=== PATIENT | female | born 1975 | race Caucasian/White ===

== ENCOUNTER → 2017-12-18 10:23 | Outpatient (CLI) | payer OTHER, SELFPAY | PROVIDERS: PCP Family Medicine; Visit Provider Physician Assistant | DX: N89.9 Noninflammatory disorder of vagina, unspecified (principal); N39.0 Urinary tract infection, site not specified | CPT/HCPCS: 87077; 87086; 87147; 87210 ==

== ENCOUNTER → 2018-01-06 10:54 | Outpatient (CLI) | payer OTHER, SELFPAY | PROVIDERS: PCP Family Medicine; Visit Provider Registered Nurse | DX: N76.0 Acute vaginitis (principal) | CPT/HCPCS: 87070; 87205 ==

== ENCOUNTER → 2018-01-13 10:03 | Outpatient (CLI) | payer OTHER, SELFPAY | PROVIDERS: PCP Family Medicine; Visit Provider Registered Nurse | DX: N76.0 Acute vaginitis (principal) ==

== ENCOUNTER → 2018-02-15 07:56 | Outpatient (CLI) | payer OTHER, SELFPAY ==
[2018-02-15 08:54] LABS: Add Manual Diff / Slide Review NO; Basophils Percent Auto 0.8 % (0-2); Hematocrit 41.8 % (36-46); Lymphocytes Percent Auto 31.6 % (25-40); Mean Corpuscular HGB Conc 33.5 % (30-36); Mean Corpuscular Hemoglobin 30.2 PG (26-34); Mean Corpuscular Volume 90.2 fL (80-100); Monocytes Percent Auto 6.6 % (3-14); Neutrophils Absolute Auto 3500 /uL (3000-5900); Platelet Count 270 X10^3/uL (150-400); Red Blood Cell Count 4.64 X10^6/uL (4.0-5.2); Red Cell Distribution Width 13.4 % (11.6-14.8); White Blood Cell Count 5.8 X10^3/uL (4.5-11.0)
[2018-02-15 09:15] LABS: Alanine Aminotransferase 17 IU/L (9-52); Albumin 4.2 g/dL (3.5-5.0); Albumin Globulin Ratio 1.4 (1.0-2.8); Alkaline Phosphatase 68 U/L (38-126); Aspartate Aminotransferase 19 IU/L (14-36); BUN Creatinine Ratio 12.5 (6-22); Bilirubin Total 0.3 mg/dL (0.2-1.3); Blood Urea Nitrogen 10 mg/dL (7-17); Calcium 8.7 mg/dL (8.4-10.2); Carbon Dioxide 25 mmol/L (22-32); Chloride 110 mmol/L (98-107); Cholesterol 181 mg/dL (140-199); Estimated Glomerular Filt Rate > 60.0 mL/min (>60); Globulin 2.9 g/dL (1.7-4.1); Glucose 91 mg/dL (70-100); HDL Cholesterol 44 mg/dL (40-60); HEMOLYSIS < 15 (0-50); LDL Cholesterol Calculated 116 mg/dL (<100); Potassium 4.4 mmol/L (3.4-5.1); Sodium 144 mmol/L (137-145); Total Protein 7.1 g/dL (6.3-8.2); Triglycerides 103 mg/dL (35-150)
[2018-02-15 09:47] LABS: TSH w/ Reflex to FT4 1.16 uIU/mL (0.47-4.68)
== END ==
PROVIDERS: PCP Family Medicine; Visit Provider Family Medicine
DX: Z00.00 Encounter for general adult medical examination without abnormal findings (principal)
CPT/HCPCS: 36415; 80053; 80061; 84443; 85025

== ENCOUNTER → 2018-03-01 09:55 | Outpatient (CLI) | payer OTHER, SELFPAY ==
[2018-03-01 10:44] LABS: Lithium 0.4 mmol/L (0.6-1.2)
== END ==
PROVIDERS: PCP Family Medicine; Visit Provider Nurse Practitioner Psychiatric/Mental Health
DX: F34.0 Cyclothymic disorder (principal)
CPT/HCPCS: 36415; 80178

== ENCOUNTER → 2018-04-07 12:27 | Outpatient (CLI) | payer OTHER, SELFPAY | PROVIDERS: PCP Family Medicine; Visit Provider Obstetrics & Gynecology | DX: R30.0 Dysuria (principal) | CPT/HCPCS: 87086 ==

== ENCOUNTER → 2018-04-30 13:56 | Outpatient (CLI) | payer OTHER, SELFPAY | PROVIDERS: PCP Family Medicine; Visit Provider Family Medicine | DX: B82.9 Intestinal parasitism, unspecified (principal) | CPT/HCPCS: 87169 ==

== ENCOUNTER → 2018-08-13 10:39 | Outpatient (CLI) | payer OTHER, SELFPAY ==
--- NOTE | 2018-08-13 10:40 | DI.MG.S_ITS ---
BILATERAL DIGITAL SCREENING MAMMOGRAM 3D/2D WITH CAD: 08/13/2018 CLINICAL: Routine screening. Family history of breast cancer. Comparison is made to exams dated: 05/28/2015 mammogram, 05/28/2015 mammogram, and 07/11/2014 mammogram - [facility]. The tissue of both breasts is heterogeneously dense. This may lower the sensitivity of mammography. Current study was also evaluated with a Computer Aided Detection (CAD) system. There is a linear scar marker overlying the right breast. No significant masses, calcifications, or other findings are seen in either breast. There has been no significant interval change. IMPRESSION: NEGATIVE There is no mammographic evidence of malignancy. A 1 year screening mammogram is recommended. This exam was interpreted at Station ID: [id number]. NOTE: For mammograms, a report in lay terms will be sent to the patient. Approximately 15% of breast malignancies will not be visualized mammographically. In the management of a palpable breast mass, a negative mammogram must not discourage biopsy of a clinically suspicious lesion. Electronically Signed By: Riki John M.D. ecl/:08/13/2018 11:59:42 letter sent: Normal Exam ACR BI-RADS Category 1: Negative 3341F
== END ==
PROVIDERS: PCP Family Medicine; Visit Provider Family Medicine
DX: Z12.31 Encounter for screening mammogram for malignant neoplasm of breast (principal); Z80.3 Family history of malignant neoplasm of breast
CPT/HCPCS: 77063; 77067

== ENCOUNTER → 2018-11-23 10:57 | Outpatient (CLI) | payer OTHER, SELFPAY ==
[2018-11-23 12:26] LABS: Free T4, Direct Thyroxine 0.94 ng/dL (0.78-2.19)
[2018-11-23 12:40] LABS: Thyroid Stimulating Hormone 1.85 uIU/mL (0.47-4.68)
== END ==
PROVIDERS: PCP Family Medicine; Visit Provider Nurse Practitioner Psychiatric/Mental Health
DX: L65.9 Nonscarring hair loss, unspecified (principal)
CPT/HCPCS: 36415; 84439; 84443

== ENCOUNTER → 2020-01-25 09:41 | Outpatient (CLI) | payer OTHER, SELFPAY ==
[2020-01-25 10:41] LABS: Add Manual Diff / Slide Review NO; Basophils Absolute Auto 100 /uL (0-100); Basophils Percent Auto 0.9 % (0-2); Eosinophils Absolute Auto 200 /uL (0-450); Eosinophils Percent Auto 2.6 % (2-4); Hematocrit 41.4 % (36-46); Hemoglobin 13.9 g/dL (12.0-16.0); Lymphocytes Absolute Auto 1700 /uL (1100-4500); Lymphocytes Percent Auto 29.8 % (25-40); Mean Corpuscular HGB Conc 33.5 % (30-36); Mean Corpuscular Hemoglobin 30.7 PG (26-34); Mean Corpuscular Volume 91.7 fL (80-100); Monocytes Absolute Auto 400 /uL (0-900); Monocytes Percent Auto 6.1 % (3-14); Neutrophils Absolute Auto 3600 /uL (1500-7000); Neutrophils Percent Auto 60.6 % (50-75); Platelet Count 279 X10^3/uL (150-400); Red Blood Cell Count 4.52 X10^6/uL (4.0-5.2); Red Cell Distribution Width 13.1 % (11.6-14.8); White Blood Cell Count 5.9 X10^3/uL (4.5-11.0)
[2020-01-25 10:50] LABS: Hemoglobin A1C% w Est Avg Glu 5.2 % (4.0-6.0)
[2020-01-25 10:59] LABS: Lithium 0.3 mmol/L (0.6-1.2)
[2020-01-25 11:13] LABS: Alanine Aminotransferase 11 IU/L (<35); Albumin 4.2 g/dL (3.5-5.0); Albumin Globulin Ratio 1.5 (1.0-2.8); Alkaline Phosphatase 85 U/L (38-126); Aspartate Aminotransferase 19 IU/L (14-36); BUN Creatinine Ratio 15.8 (6-22); Bilirubin Total 0.3 mg/dL (0.2-1.3); Blood Urea Nitrogen 12 mg/dL (7-17); Calcium 8.9 mg/dL (8.4-10.2); Carbon Dioxide 27 mmol/L (22-32); Chloride 108 mmol/L (98-107); Estimated Glomerular Filt Rate > 60.0 mL/min (>60); Globulin 2.8 g/dL (1.7-4.1); Glucose 93 mg/dL (70-100); HEMOLYSIS < 15 (0-50); Potassium 4.5 mmol/L (3.4-5.1); Sodium 140 mmol/L (137-145)
[2020-01-25 11:17] LABS: Vitamin D 25 Hydroxy (D3) 22.2 ng/mL (30.0-100.0)
[2020-01-25 11:19] LABS: Free T4, Direct Thyroxine 1.01 ng/dL (0.78-2.19)
[2020-01-25 12:25] LABS: Cholesterol 189 mg/dL (140-199); HDL Cholesterol 61 mg/dL (40-60); LDL Cholesterol Calculated 115 mg/dL (<100); Triglycerides 65 mg/dL (35-150)
== END ==
PROVIDERS: PCP Family Medicine; Referring Provider Nurse Practitioner Psychiatric/Mental Health; Visit Provider Nurse Practitioner Psychiatric/Mental Health
DX: Z51.81 Encounter for therapeutic drug level monitoring (principal); E66.9 Obesity, unspecified
CPT/HCPCS: 36415; 80053; 80061; 80178; 82306; 83036; 84439; 84443; 85025

== ENCOUNTER → 2020-03-28 11:01 | Outpatient (CLI) | payer OTHER, SELFPAY ==
--- NOTE | 2020-03-28 11:01 | DI.MG.S_ITS ---
BILATERAL DIGITAL SCREENING MAMMOGRAM 3D/2D WITH CAD: 03/28/2020 CLINICAL: Routine screening. Family history of breast cancer. Comparison is made to exams dated: 08/13/2018 mammogram, 05/28/2015 mammogram, 05/28/2015 mammogram, and 07/11/2014 mammogram - [facility]. There are scattered fibroglandular elements in both breasts. Current study was also evaluated with a Computer Aided Detection (CAD) system. There is a developing 1.1 cm oval asymmetry in the left breast middle depth lateral region seen on the craniocaudal view only. No other significant masses, calcifications, or other findings are seen in either breast. IMPRESSION: INCOMPLETE: NEEDS ADDITIONAL IMAGING EVALUATION The developing 1.1 cm oval asymmetry in the left breast is indeterminate. Additional views with possible ultrasound are recommended. This exam was interpreted at Station ID: [id number]. NOTE: For mammograms, a report in lay terms will be sent to the patient. Approximately 15% of breast malignancies will not be visualized mammographically. In the management of a palpable breast mass, a negative mammogram must not discourage biopsy of a clinically suspicious lesion. Electronically Signed By: Catherine boucher/ruben:03/28/2020 13:00:26 letter sent: Additional Imaging Needed ACR BI-RADS Category 0: Incomplete 3340F
== END ==
PROVIDERS: PCP Family Medicine; Referring Provider Family Medicine; Visit Provider Family Medicine
DX: Z12.31 Encounter for screening mammogram for malignant neoplasm of breast (principal); Z80.3 Family history of malignant neoplasm of breast
CPT/HCPCS: 77063; 77067

== ENCOUNTER → 2020-04-26 14:05 | Outpatient (CLI) | payer OTHER, SELFPAY ==
--- NOTE | 2020-04-26 | DI.MG.S_ITS ---
UNILATERAL LEFT DIGITAL DIAGNOSTIC MAMMOGRAM 3D/2D WITH ADDITIONAL VIEWS: 04/26/2020 CLINICAL: Additional evaluation requested from prior study. Comparison is made to exams dated: 03/28/2020 mammogram, 08/13/2018 mammogram, 05/28/2015 mammogram, and 07/11/2014 mammogram - [facility]. There are scattered fibroglandular elements in left breast. The oval asymmetry with indistinct marginf in the left breast middle depth lateral region seen on the craniocaudal view onlyis not discretely seen on additional views. This region appears unchanged compared to prior studies with additional compression. No other significant masses or calcifications are seen in the breast. IMPRESSION: BENIGN There is no mammographic evidence of malignancy. A 1 year screening mammogram is recommended. This exam was interpreted at Station ID: [id number]. NOTE: For mammograms, a report in lay terms will be sent to the patient. Approximately 15% of breast malignancies will not be visualized mammographically. In the management of a palpable breast mass, a negative mammogram must not discourage biopsy of a clinically suspicious lesion. Electronically Signed By: Hieu reese/:04/26/2020 14:32:43 letter sent: Normal Exam ACR BI-RADS Category 2: Benign Finding(s) 3342F
== END ==
PROVIDERS: PCP Family Medicine; Referring Provider Family Medicine; Visit Provider Family Medicine
DX: R92.8 Other abnormal and inconclusive findings on diagnostic imaging of breast (principal)
CPT/HCPCS: 77065; G0279

== ENCOUNTER → 2020-05-16 09:17 | Outpatient (CLI) | payer OTHER, SELFPAY ==
--- NOTE | 2020-05-16 09:18 | DI.RAD.S_ITS ---
PROCEDURE: XR ANKLE LT MIN 3V INDICATIONS: sprain, tenderness over lateral malleolus TECHNIQUE: 3 views of the ankle were acquired. COMPARISON: None. FINDINGS: Bones: There is an ill-defined nondisplaced lucency within the distal fibula, not well seen on all views. Ankle mortise is normally aligned. No suspicious bony lesions. Soft tissues: Lateral malleolar soft tissue edema. Achilles tendon appears normal. IMPRESSION: Lateral malleolar soft tissue edema of. Ill-defined distal fibular lucency, not well seen on all views. While this could be artifact, fracture cannot be definitively excluded. Recommend follow-up imaging in 7-10 days for further evaluation. Dictated by: Mirela Randolph M.D. on 05/16/2020 at 9:31 Approved by: Mirela Randolph M.D. on 05/16/2020 at 9:32
== END ==
PROVIDERS: PCP Family Medicine; Referring Provider Family Medicine; Visit Provider Family Medicine
DX: S93.402A Sprain of unspecified ligament of left ankle, initial encounter (principal); M79.89 Other specified soft tissue disorders; X50.0XXA Overexertion from strenuous movement or load, initial encounter
CPT/HCPCS: 73610

== ENCOUNTER → 2021-06-03 12:16 | Outpatient (CLI) | payer OTHER, SELFPAY ==
[2021-06-03 13:04] LABS: Add Manual Diff / Slide Review NO; Basophils Absolute Auto 100 /uL (0-100); Basophils Percent Auto 1.1 % (0-2); Eosinophils Absolute Auto 0 /uL (0-450); Eosinophils Percent Auto 0.1 % (2-4); Hematocrit 40.8 % (36-46); Hemoglobin 13.8 g/dL (12.0-16.0); Lymphocytes Absolute Auto 1600 /uL (1100-4500); Lymphocytes Percent Auto 29.1 % (25-40); Mean Corpuscular HGB Conc 33.8 % (30-36); Mean Corpuscular Hemoglobin 30.2 PG (26-34); Mean Corpuscular Volume 89.5 fL (80-100); Monocytes Absolute Auto 300 /uL (0-900); Monocytes Percent Auto 5.2 % (3-14); Neutrophils Absolute Auto 3500 /uL (1500-7000); Neutrophils Percent Auto 64.5 % (50-75); Platelet Count 284 X10^3/uL (150-400); Red Blood Cell Count 4.56 X10^6/uL (4.0-5.2); White Blood Cell Count 5.4 X10^3/uL (4.5-11.0)
[2021-06-03 13:31] LABS: Erythrocyte Sedimentation Rate 13 MM/HR (0-20)
[2021-06-03 13:52] LABS: Alanine Aminotransferase 10 IU/L (<35); Albumin 4.3 g/dL (3.5-5.0); Albumin Globulin Ratio 1.6 (1.0-2.8); Alkaline Phosphatase 77 U/L (38-126); Aspartate Aminotransferase 19 IU/L (14-36); Bilirubin Total 0.4 mg/dL (0.2-1.3); Blood Urea Nitrogen 12 mg/dL (7-17); C-Reactive Protein Quant < 0.5 mg/dL (<1.0); Carbon Dioxide 26 mmol/L (22-32); Chloride 107 mmol/L (98-107); Estimated Glomerular Filt Rate > 60.0 mL/min (>60); Globulin 2.7 g/dL (1.7-4.1); Glucose 92 mg/dL (70-100); HEMOLYSIS < 15 (0-50); Potassium 4.4 mmol/L (3.4-5.1); Sodium 138 mmol/L (137-145)
== END ==
PROVIDERS: PCP Family Medicine; Referring Provider Family Medicine; Visit Provider Family Medicine
DX: E55.9 Vitamin D deficiency, unspecified (principal); F41.9 Anxiety disorder, unspecified; R10.9 Unspecified abdominal pain; R53.83 Other fatigue
CPT/HCPCS: 36415; 80053; 82306; 84443; 85025; 85651; 86140

== ENCOUNTER 2021-07-29 10:51 | Day surgery (SDC) | payer OTHER, SELFPAY ==
--- NOTE | 2021-07-29 | PATH_ITS ---
[facility] Accession Number: [id number] . 01 Material submitted: . PART A: duodenum - DUODNEUM PART B: stomach - ANTRUM PART C: colon - RANDOM COLON . 02 Diagnosis: A. Duodenum: Duodenal mucosa with no diagnostic abnormality. Negative for active inflammation, features of sprue, dysplasia, or malignancy. . B. Antrum, Biopsy: Gastric body-type mucosa with mild chronic inflammation. Negative for Helicobacter organisms by immunohistochemistry. Negative for intestinal metaplasia. Negative for dysplasia or malignancy. . C. Random Colon: Colonic mucosa with no diagnostic abnormality. Negative for active, chronic, and microscopic colitis. Negative for dysplasia and malignancy. MRV 08/02/2021 1349 Local . 02 Electronically signed: . Tracie Ag MD, Pathologist NPI- [id number] . 01 Gross description: . Part A: DUODNEUM: Received in formalin are 3 fragment(s) of smith, soft tissue measuring 0.2 x 0.2 x 0.2 cm to 0.2 x 0.1 x 0.1 cm submitted entirely in 1 cassette(s) Part B: ANTRUM: Received in formalin are 2 fragment(s) of smith, soft tissue measuring 0.2 x 0.2 x 0.2 cm to 0.2 x 0.1 x 0.1 cm submitted entirely in 1 cassette(s) Part C: RANDOM COLON: Received in formalin are 2 fragment(s) of smith, soft tissue measuring 0.5 x 0.1 x 0.1 cm to 0.1 x 0.1 x 0.1 cm submitted entirely in 1 cassette(s) /CPE 07/30/2021 0630 Local . 02 Microscopic: . B. An immunohistochemical stain is performed to evaluate for Helicobacter organisms and is negative. The control stain shows appropriate reactivity. . * This test was developed and its performance characteristics determined by [facility]. It has not been cleared or approved by the U.S. Food and Drug Administration. The FDA has determined that such clearance or approval is not necessary. This test is used for clinical purposes. It should not be regarded as investigational or for research. . 02 Pathologist provided ICD-10: R14.0, R19.7, R12 . 02 CPT . 669255, 712125, 308914, G40429 Specimen Comment: A courtesy copy of this report has been sent to [phone] Performed at: 01 [facility] [address] [place] [address], [place], [place] [id number] MD Hieu Deleon MD Phone: [phone] Performed at: 02 [facility] [address] [place] [id number] MD Rose Marie Duran MD Phone: [phone]
[2021-07-29 11:14] VITALS: BP 103/67; PULSE 86; RESP 14; TEMP 37.1; O2SAT 98; BMI 36.6
--- NOTE | 2021-07-29 11:59 | SUR.PREOP ---
Two attempts from [facility] to fax COVID result. Unsuccessful. Verbally told the COVID result was negative per
--- NOTE | 2021-07-29 12:06 | PM.HP.1 ---
History of Present Illness History of Present Illness Date Patient Seen: 07/29/21 Time Patient Seen: 12:06 Chief complaint: DX COLONOSCOPY/EGD W/BX Narrative: I reviewed the recent note from Dr. Kirk. No changes. Patient however does believe she has possibly a periumbilical hernia that occasionally sutures out when maximally bloated. Patient History Medical History Anesthesia Anxiety (~1995) Bilateral bunions (~1991) Bipolar disorder (2012) Chicken pox (~1983) Chronic back pain (~1992) Depression (~1993) Foot pain (~1991) Grief Hearing loss History of recurrent ear infection Normal Papanicolaou smear Painful menstrual periods (1989) Plantar warts (~1984) Vision loss Surgical History Status post delivery (03/03/08) Family & Social History Family History Father Suicide Mother Breast cancer Sister No problems noted. Sister No problems noted. Social History: household members spouse Tobacco & Substance use: Smoking Status Never smoker alcohol intake never Substance Use Type does not use Meds Home Medications and Allergies Home Medications Medication Instructions Recorded Confirmed Type levonorgestrel 20 mcg/24 hours (7 INTRAUTERINE each 03/16/18 06/18/21 History yrs) 52 mg intrauterine device (Mirena) theanine 50 mg disintegrating See Rx Instructions PO .COMPLEX 11/23/18 06/18/21 History tablet tab lamotrigine 100 mg tablet 200 mg PO DAILY #180 tab 03/07/21 06/18/21 Rx lithium carbonate 300 mg capsule 600 mg PO HS #180 cap 03/07/21 06/18/21 Rx venlafaxine 150 mg 150 mg PO QDAY #90 cap 06/04/21 06/18/21 Rx capsule,extended release 24 hr cholecalciferol (vitamin D3) 1,250 1,250 mcg PO QWEEK #12 cap 06/13/21 Rx mcg (50,000 unit) capsule gabapentin 300 mg capsule 300 mg PO BEDTIME #30 cap 06/18/21 06/18/21 Rx Allergies Allergy/AdvReac Type Severity Reaction Status Date / Time No Known Drug Allergies Allergy Verified 07/29/21 12:05 Review of Systems Review of Systems ROS: Yes All systems reviewed with the patient and are negative except as otherwise documented Exam Vital Signs (past 8 hours): - 07/29/21 11:14 Temperature 98.7 F Pulse Rate 86 Respiratory Rate 14 Blood Pressure 103/67 Pulse Oximetry 98 Oxygen Delivery Method Room Air Const General: cooperative and comfortable Orientation: alert HENMT Head: normocephalic Ears: external ears normal Nose: external nose normal Face and sinus: normal facial exam Mouth: oral mucosae normal Eyes General: appearance normal, both eyes and all related structures Neck Neck: normal visual inspection Chest Chest: normal inspection of the chest Resp Effort & Inspection: normal respiratory effort Cardio Rate: regular rate GI Inspection: normal to inspection Skin General: no rashes or lesions noted and No jaundice Neuro General: patient alert and moves all extremities Cognition: normal cognition Speech: speech normal Extrem General: no pedal edema Psych Appearance: grossly normal Assessment & Plan Assessment & Plan narrative: 45-year-old female with abdominal pain altered bowel habits including diarrhea. EGD and colonoscopy are pursued today. Time Spent With Patient Critical Care time: I spent a total of [] minutes of critical care time on this patient's care today; this time is exclusive of procedural time.
--- NOTE | 2021-07-29 12:08 | SUR.PREOP ---
Faxed covid result received - negative
--- NOTE | 2021-07-29 12:09 | PM.PREOP ---
Pre-operative Note COVID-19 COVID-19 status: Negative Result date/Date tested (Pos, Neg/Pending): 07/26/21 Criteria for continued procedure: Possibility delay results in more complex future surgery or treatment Interval Note History & Physical reviewed/Exam performed by Physician: Yes Changes to H&P: Yes ASA Class (for procedural sedation): II
--- NOTE | 2021-07-29 13:43 | P.OP.EGD&C_ITS ---
Operative Date/Time/Diagnoses Date of procedure: 07/29/21 Time of procedure: 13:43 Pre-op diagnosis: Abdominal pain diarrhea Post-op diagnosis: same Procedure & Clinicians Study performed: EGD with biopsies and colonoscopy with biopsies Same procedure as scheduled: Yes Indications: Abdominal pain diarrhea Surgeon: Hung Sunshine Procedure Notes SCOAP/Timeout: Done Procedure in detail: After the risks and benefits were explained, written and verbal informed consent was obtained. The patient was brought into the procedure room and placed into the left lateral decubitus position. Please see nurse senior publications specialist notes for sedation details. The scope was introduced into the mouth through the bite block and advanced under direct visualization to the 2nd portion of the duodenum. The scope was slowly withdrawn carefully examining the mucosa for any defects or lesions. Retroflexed views were accomplished in the stomach. The stomach was decompressed, the scope was then removed from the patient who tolerated the procedure well. The patient was then turned around a digital rectal examination accomplished. The scope was introduced in the rectum and advanced under direct visualization to the cecum as identified by the appendiceal orifice and ileocecal valve. Terminal ileum was briefly interrogated the scope then slowly withdrawn to carefully examine the mucosa for any defects or lesions. Multiple direct views were made through the dentate line for exclusion of pathology colon was decompressed scope removed the patient tolerated the procedure well. Adult colonoscope Bowel prep adequate Scope withdrawal time: 8 minutes Sedation minutes: 35 Complications: none Impression: 1. Duodenum: This was visually normal from the bulb through the 2nd portion. Random D2 biopsies were acquired for exclusion of sprue. 2. Stomach: No ulcers no outlet obstruction no mass lesions appreciated throughout. Retroflexed views of the LES were unremarkable. There was a mild gastropathy and therefore biopsy was acquired from the antrum for exclusion of Helicobacter or other pathology. 3. Esophagus: The squamocolumnar junction correlated with the top of the gastric folds. GEJ was at 39 cm from the incisors. No acute erosive changes no strictures no mass lesions. 4. Terminal ileum: This appeared normal. 5. Colon: Patient had a lengthy tortuous colon. Medication was challenging as a consequence. I did not identify any evidence of macroscopic colitis. Random colon biopsies were taken for exclusion of microscopic disease. Endoscopic diagnosis 1. Mild gastropathy 2. Otherwise visually unremarkable EGD 3. Lengthy tortuous colon 4. Otherwise visually normal appearing colonoscopy and terminal ileoscopy Post-procedure Plan for aftercare: 1. Await histopathology. 2. Repeat colonoscopy for colon cancer screening in 10 years time. 3. Fiber based bowel regimen. 4. Follow up GI clinic with Dr. Kirk in the next 6-8 weeks. Disposition: PACU
[2021-07-29 13:47] VITALS: BP 105/58; PULSE 71; RESP 16; TEMP 36.1; O2SAT 99
[2021-07-29 13:57] VITALS: BP 108/60; PULSE 69; RESP 18; O2SAT 98
[2021-07-29 14:10] VITALS: BP 104/68; PULSE 84; RESP 16; TEMP 36.6; O2SAT 99
== END 2021-07-29 14:14 | disposition home or self-care (01) ==
PROVIDERS: PCP Family Medicine; Referring Provider Internal Medicine Gastroenterology; Visit Provider Internal Medicine Gastroenterology
PROC: 0DJ08ZZ Inspection of Upper Intestinal Tract, Via Natural or Artificial Opening Endoscopic (ICD-10-PCS; CPT 43235; principal; 2021-07-29 13:30)
PROC: 0DJD8ZZ Inspection of Lower Intestinal Tract, Via Natural or Artificial Opening Endoscopic (ICD-10-PCS; CPT 45378; 2021-07-29 13:30)
DX: R10.9 Unspecified abdominal pain (principal); R19.7 Diarrhea, unspecified; K31.9 Disease of stomach and duodenum, unspecified; K29.50 Unspecified chronic gastritis without bleeding
CPT/HCPCS: 45380; 43239; 81025; J2250; J2704

== ENCOUNTER → 2022-05-23 11:16 | Outpatient (CLI) | payer OTHER, SELFPAY ==
--- NOTE | 2022-05-23 | DI.MG.S_ITS ---
BILATERAL DIGITAL SCREENING MAMMOGRAM 3D/2D WITH CAD: 05/23/2022 CLINICAL: Routine screening. Family history of breast cancer. Comparison is made to exams dated: 04/26/2020 mammogram, 03/28/2020 mammogram, 08/13/2018 mammogram, and 05/28/2015 mammogram - [facility]. Both breasts are heterogeneously dense, which may obscure small masses (category c / 51-75% glandular tissue). Current study was also evaluated with a Computer Aided Detection (CAD) system. There is a focal asymmetry with grouped calcifications in the left breast at 12 o'clock middle depth. No other significant masses, calcifications, or other findings are seen in either breast. IMPRESSION: INCOMPLETE: NEEDS ADDITIONAL IMAGING EVALUATION The focal asymmetry in the left breast is indeterminate. Magnification views as well as additional views with possible ultrasound are recommended. Based on Tyrer-Cuzick model (a risk assessment model), the patient's lifetime risk is 34.7% and her 10 year risk is 7.6%. If a patient has an elevated risk, a more comprehensive evaluation should be considered and/or a referral to a genetic counselor. The [employer], [employer], and NCCN Guidelines advise the consideration of Breast MRI as an adjunct to screening mammography in patients whose Lifetime risk to develop breast cancer is 20% or higher. This exam was interpreted at Station ID: [id number]. NOTE: For mammograms, a report in lay terms will be sent to the patient. Approximately 15% of breast malignancies will not be visualized mammographically. In the management of a palpable breast mass, a negative mammogram must not discourage biopsy of a clinically suspicious lesion. Electronically Signed By: Rossy brewster/:05/23/2022 12:23:27 letter sent: Additional Imaging Needed ACR BI-RADS Category 0: Incomplete 3340F
== END ==
PROVIDERS: PCP Family Medicine; Referring Provider Family Medicine; Visit Provider Family Medicine
DX: Z12.31 Encounter for screening mammogram for malignant neoplasm of breast (principal); Z80.3 Family history of malignant neoplasm of breast
CPT/HCPCS: 77063; 77067

== ENCOUNTER → 2022-06-18 10:11 | Outpatient (CLI) | payer OTHER, SELFPAY ==
--- NOTE | 2022-06-18 | DI.MG.S_ITS ---
UNILATERAL LEFT DIGITAL DIAGNOSTIC MAMMOGRAM 3D/2D WITH ADDITIONAL VIEWS: 06/18/2022 CLINICAL: Additional evaluation requested from prior study. Comparison is made to exams dated: 05/23/2022 mammogram, 04/26/2020 mammogram, 03/28/2020 mammogram, and 08/13/2018 mammogram - [facility]. The left breast is heterogeneously dense, which may obscure small masses (category c / 51-75% glandular tissue). There is a stable benign focal asymmetry with grouped calcifications in the left breast at 12 o'clock middle depth. Comparing current tomography to prior tomography on 03/28/2020 screening mammogram, the finding is identical. No other significant masses or calcifications are seen in the breast. IMPRESSION: BENIGN There is no mammographic evidence of malignancy. Stable findings. Return to annual mammogram screening schedule is recommended. Based on Tyrer-Cuzick model (a risk assessment model), the patient's lifetime risk is 34.7% and her 10 year risk is 7.6%. If a patient has an elevated risk, a more comprehensive evaluation should be considered and/or a referral to a genetic counselor. The [employer], [employer], and NCCN Guidelines advise the consideration of Breast MRI as an adjunct to screening mammography in patients whose Lifetime risk to develop breast cancer is 20% or higher. This exam was interpreted at Station ID: [id number]. NOTE: For mammograms, a report in lay terms will be sent to the patient. Approximately 15% of breast malignancies will not be visualized mammographically. In the management of a palpable breast mass, a negative mammogram must not discourage biopsy of a clinically suspicious lesion. Electronically Signed By: Jan Miranda M.D. acr/:06/18/2022 10:43:03 letter sent: Normal Exam ACR BI-RADS Category 2: Benign Finding(s) 3342F
== END ==
PROVIDERS: PCP Family Medicine; Referring Provider Family Medicine; Visit Provider Family Medicine
DX: R92.8 Other abnormal and inconclusive findings on diagnostic imaging of breast (principal); R92.1 Mammographic calcification found on diagnostic imaging of breast; N64.89 Other specified disorders of breast
CPT/HCPCS: 77065; G0279

== ENCOUNTER → 2022-10-20 07:46 | Outpatient (CLI) | payer OTHER, SELFPAY ==
[2022-10-20 09:15] LABS: Lithium 0.5 mmol/L (0.6-1.2)
[2022-10-20 09:16] LABS: Alanine Aminotransferase 10 IU/L (<35); Albumin 3.7 g/dL (3.5-5.0); Albumin Globulin Ratio 1.4 (1.0-2.8); Alkaline Phosphatase 77 U/L (38-126); Aspartate Aminotransferase 15 IU/L (14-36); BUN Creatinine Ratio 14.6 (6-22); Bilirubin Total 0.2 mg/dL (0.2-1.3); Blood Urea Nitrogen 13 mg/dL (7-17); Calcium 8.6 mg/dL (8.4-10.2); Carbon Dioxide 25 mmol/L (22-32); Chloride 107 mmol/L (98-107); Estimated Glomerular Filt Rate > 60 mL/min (>60); Globulin 2.7 g/dL (1.7-4.1); Glucose 99 mg/dL (70-100); HEMOLYSIS < 15 (0-50); Potassium 4.4 mmol/L (3.4-5.1); Sodium 137 mmol/L (137-145); Total Protein 6.4 g/dL (6.3-8.2)
[2022-10-22 14:12] LABS: Lamotrigine Lamictal 2.7 ug/mL (2.0-20.0)
== END ==
PROVIDERS: PCP Family Medicine; Referring Provider Psychiatry & Neurology Psychiatry; Visit Provider Psychiatry & Neurology Psychiatry
DX: F31.9 Bipolar disorder, unspecified (principal); Z79.899 Other long term (current) drug therapy
CPT/HCPCS: 36415; 80053; 80175; 80178; 84439; 84443

== ENCOUNTER → 2023-06-15 09:59 | Outpatient (CLI) | payer OTHER, SELFPAY ==
--- NOTE | 2023-06-15 10:00 | DI.MG.S_ITS ---
BILATERAL DIGITAL SCREENING MAMMOGRAM 3D/2D WITH CAD: 06/15/2023 CLINICAL: Routine screening. Family history of breast cancer. Comparison is made to exams dated: 05/23/2022 mammogram, 03/28/2020 mammogram, and 08/13/2018 mammogram - [facility]. There are scattered areas of fibroglandular density in both breasts (category b / 25%-50% glandular tissue). Current study was also evaluated with a Computer Aided Detection (CAD) system. There are benign post operative findings in the right breast. No significant masses, calcifications, or other findings are seen in either breast. There has been no significant interval change. IMPRESSION: BENIGN There is no mammographic evidence of malignancy. A 1 year screening mammogram is recommended. Based on Tyrer-Cuzick model (a risk assessment model), the patient's lifetime risk is 24.2% and her 10 year risk is 5.3%. If a patient has an elevated risk, a more comprehensive evaluation should be considered and/or a referral to a genetic counselor. The [employer], [employer], and NCCN Guidelines advise the consideration of Breast MRI as an adjunct to screening mammography in patients whose Lifetime risk to develop breast cancer is 20% or higher. This exam was interpreted at Station ID: [id number]. NOTE: For mammograms, a report in lay terms will be sent to the patient. Approximately 15% of breast malignancies will not be visualized mammographically. In the management of a palpable breast mass, a negative mammogram must not discourage biopsy of a clinically suspicious lesion. Electronically Signed By: Rossy brewster/ruben:06/15/2023 12:16:55 letter sent: Normal Exam ACR BI-RADS Category 2: Benign Finding(s) 3342F
== END ==
LOC: MAMMO 09:59
PROVIDERS: PCP Family Medicine; Referring Provider Family Medicine; Visit Provider Family Medicine
DX: Z12.31 Encounter for screening mammogram for malignant neoplasm of breast (principal); Z80.3 Family history of malignant neoplasm of breast; R92.323 Mammographic fibroglandular density, bilateral breasts
CPT/HCPCS: 77063; 77067

== ENCOUNTER → 2023-10-26 07:38 | Outpatient (CLI) | payer OTHER, SELFPAY ==
[2023-10-26 09:09] LABS: Add Manual Diff / Slide Review NO; Basophils Absolute Auto 100 /uL (0-100); Basophils Percent Auto 1.9 % (0-2); Eosinophils Absolute Auto 200 /uL (0-450); Eosinophils Percent Auto 3.6 % (2-4); Hemoglobin 13.8 g/dL (12.0-16.0); Lymphocytes Absolute Auto 2000 /uL (1100-4500); Lymphocytes Percent Auto 32.9 % (25-40); Mean Corpuscular HGB Conc 33.6 % (30-36); Mean Corpuscular Volume 92.4 fL (80-100); Monocytes Absolute Auto 400 /uL (0-900); Monocytes Percent Auto 6.4 % (3-14); Neutrophils Absolute Auto 3300 /uL (1500-7000); Neutrophils Percent Auto 55.2 % (50-75); Platelet Count 333 X10^3/uL (150-400); Red Blood Cell Count 4.44 X10^6/uL (4.0-5.2); Red Cell Distribution Width 13.2 % (11.6-14.8)
[2023-10-26 09:28] LABS: Lithium 0.6 mmol/L (0.6-1.2)
[2023-10-26 09:33] LABS: Alanine Aminotransferase 9 IU/L (<35); Albumin 4.4 g/dL (3.5-5.0); Albumin Globulin Ratio 1.8 (1.0-2.8); Alkaline Phosphatase 71 U/L (38-126); Aspartate Aminotransferase 17 IU/L (14-36); BUN Creatinine Ratio 8.7 (6-22); Bilirubin Total 0.6 mg/dL (0.2-1.3); Blood Urea Nitrogen 9 mg/dL (7-17); Calcium 9.4 mg/dL (8.4-10.2); Carbon Dioxide 26 mmol/L (22-32); Chloride 108 mmol/L (98-107); Estimated Glomerular Filt Rate > 60 mL/min (>60); Globulin 2.5 g/dL (1.7-4.1); Glucose 96 mg/dL (70-100); HEMOLYSIS < 15 (0-50); Potassium 5.3 mmol/L (3.4-5.1); Sodium 139 mmol/L (137-145); Total Protein 6.9 g/dL (6.3-8.2)
[2023-10-26 09:57] LABS: TSH w/ Reflex to FT4 2.19 uIU/mL (0.47-4.68)
== END ==
LOC: LAB 07:39
PROVIDERS: Referring Provider Psychiatry & Neurology Psychiatry; Visit Provider Psychiatry & Neurology Psychiatry
DX: F31.9 Bipolar disorder, unspecified (principal); Z79.899 Other long term (current) drug therapy
CPT/HCPCS: 36415; 80053; 80175; 80178; 84443; 85025

== ENCOUNTER → 2023-10-26 12:00 | Outpatient (CLI) | payer OTHER, SELFPAY ==
--- NOTE | 2023-10-26 12:02 | DI.RAD.S_ITS ---
PROCEDURE: XR KNEE RT 3V INDICATIONS: new bilateral pain, worse in the morning and WB TECHNIQUE: 3 views of the knee were acquired. COMPARISON: None. FINDINGS: Bones: No fractures or dislocations. No suspicious bony lesions. 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 Incidental patella [place]. Soft tissues: Small joint effusion. No suspicious soft tissue calcifications. IMPRESSION: 1. No acute fracture or dislocation. 2. 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 3. Small joint effusion. 4. Incidental patella larry. Dictated by: Etienne Montenegro M.D. on 10/26/2023 at 15:00 Approved by: Etienne Montenegro M.D. on 10/26/2023 at 15:08
--- NOTE | 2023-10-26 12:02 | DI.RAD.S_ITS ---
PROCEDURE: XR KNEE LT 3V INDICATIONS: new bilateral pain, worse in the morning and WB TECHNIQUE: 3 views of the knee were acquired. COMPARISON: None. FINDINGS: Bones: No fractures or dislocations. No suspicious bony lesions. There is osteoarthritis of the medial compartment and patellofemoral joint. Soft tissues: There is a moderate sized joint effusion. Incidental patella [place]. No suspicious soft tissue calcifications. IMPRESSION: 1. No acute fracture or dislocation. 2. Moderate sized joint effusion. 3. Osteoarthritic of the medial compartment of the knee and patellofemoral joint. 4. Incidental patella larry. Dictated by: Etienne Montenegro M.D. on 10/26/2023 at 14:40 Approved by: Etienne Montenegro M.D. on 10/26/2023 at 15:00
--- NOTE | 2023-10-26 12:02 | DI.RAD.S_ITS ---
PROCEDURE: XR SHOULDER LT MIN 2V INDICATIONS: new bilateral pain, worse in the morning and WB TECHNIQUE: 3 views of the shoulder were acquired. COMPARISON: None. FINDINGS: Bones: No fractures or dislocations. No suspicious bony lesions. Visualized ribs appear intact. Soft tissues: No suspicious soft tissue calcifications. IMPRESSION: No acute fracture or dislocation. Dictated by: Etienne Montenegro M.D. on 10/26/2023 at 15:08 Approved by: Etienne Montenegro M.D. on 10/26/2023 at 15:14
[2023-10-26 15:00] LABS: Folate 7.7 ng/mL (2.76-20.0); Vitamin B12 196 pg/mL (239-931)
[2023-10-26 15:16] LABS: Vitamin D 25 Hydroxy (D3) 30.2 ng/mL (30.0-100.0)
[2023-10-27 18:07] LABS: Zinc 66 ug/dL (44-115)
== END ==
PROVIDERS: PCP Family Medicine; Referring Provider Family Medicine; Visit Provider Family Medicine
DX: M17.0 Bilateral primary osteoarthritis of knee (principal); M25.561 Pain in right knee; M25.562 Pain in left knee; R22.30 Localized swelling, mass and lump, unspecified upper limb; E55.9 Vitamin D deficiency, unspecified; F31.9 Bipolar disorder, unspecified; R53.83 Other fatigue; E66.9 Obesity, unspecified; Z79.899 Other long term (current) drug therapy; M22.8X1 Other disorders of patella, right knee; M25.461 Effusion, right knee; M25.462 Effusion, left knee
CPT/HCPCS: 36415; 73030; 73562; 80053; 80175; 80178; 82306; 82607; 82746; 84207; 84443; 84630; 85025

== ENCOUNTER → 2024-02-01 09:49 | Outpatient (CLI) | payer OTHER, SELFPAY ==
[2024-02-01 12:15] LABS: Lithium 0.8 mmol/L (0.6-1.2)
[2024-02-01 13:10] LABS: Vitamin B12 > 1000 pg/mL (239-931)
== END ==
PROVIDERS: Family Provider Family Medicine; PCP Family Medicine; Referring Provider Psychiatry & Neurology Psychiatry; Visit Provider Psychiatry & Neurology Psychiatry
DX: F31.9 Bipolar disorder, unspecified (principal); K14.1 Geographic tongue; E53.1 Pyridoxine deficiency; E53.8 Deficiency of other specified B group vitamins; Z79.899 Other long term (current) drug therapy; F90.9 Attention-deficit hyperactivity disorder, unspecified type; F43.11 Post-traumatic stress disorder, acute; T50.905A Adverse effect of unspecified drugs, medicaments and biological substances, initial encounter
CPT/HCPCS: 36415; 80178; 82607; 82652; 84207

== ENCOUNTER → 2024-07-20 07:40 | Outpatient (CLI) | payer OTHER, SELFPAY ==
[2024-07-20 08:44] LABS: Add Manual Diff / Slide Review NO; Basophils Absolute Auto 100 /uL (0-100); Basophils Percent Auto 1.2 % (0-2); Eosinophils Absolute Auto 200 /uL (0-450); Eosinophils Percent Auto 3.3 % (2-4); Hematocrit 39.4 % (36-46); Hemoglobin 13.4 g/dL (12.0-16.0); Lymphocytes Absolute Auto 1600 /uL (1100-4500); Lymphocytes Percent Auto 27.7 % (25-40); Mean Corpuscular Hemoglobin 30.9 PG (26-34); Mean Corpuscular Volume 90.8 fL (80-100); Monocytes Absolute Auto 300 /uL (0-900); Monocytes Percent Auto 5.6 % (3-14); Neutrophils Absolute Auto 3500 /uL (1500-7000); Neutrophils Percent Auto 62.2 % (50-75); Platelet Count 279 X10^3/uL (150-400); Red Blood Cell Count 4.34 X10^6/uL (4.0-5.2); Red Cell Distribution Width 13.1 % (11.6-14.8); White Blood Cell Count 5.6 X10^3/uL (4.5-11.0)
[2024-07-20 09:12] LABS: Lithium 0.8 mmol/L (0.6-1.2)
[2024-07-20 09:17] LABS: Alanine Aminotransferase 11 IU/L (<35); Albumin 4.4 g/dL (3.5-5.0); Albumin Globulin Ratio 1.8 (1.0-2.8); Alkaline Phosphatase 68 U/L (38-126); Aspartate Aminotransferase 18 IU/L (14-36); BUN Creatinine Ratio 8.7 (6-22); Bilirubin Total 0.6 mg/dL (0.2-1.3); Blood Urea Nitrogen 9 mg/dL (7-17); Calcium 9.5 mg/dL (8.4-10.2); Carbon Dioxide 25 mmol/L (22-32); Chloride 106 mmol/L (98-107); Estimated Glomerular Filt Rate > 60 mL/min (>60); Globulin 2.5 g/dL (1.7-4.1); Glucose 90 mg/dL (70-100); HEMOLYSIS < 15 (0-50); Potassium 4.3 mmol/L (3.4-5.1); Sodium 139 mmol/L (137-145); Total Protein 6.9 g/dL (6.3-8.2)
[2024-07-20 09:45] LABS: TSH w/ Reflex to FT4 2.94 uIU/mL (0.47-4.68)
== END ==
PROVIDERS: Family Provider Family Medicine; PCP Family Medicine; Referring Provider Psychiatry & Neurology Psychiatry; Visit Provider Psychiatry & Neurology Psychiatry
DX: F31.9 Bipolar disorder, unspecified (principal); Z79.899 Other long term (current) drug therapy
CPT/HCPCS: 36415; 80053; 80175; 80178; 84443; 85025

== ENCOUNTER → 2024-09-07 14:57 | Outpatient (CLI) | payer OTHER, SELFPAY ==
--- NOTE | 2024-09-07 14:57 | DI.MRI.S_ITS ---
PROCEDURE: MR SHOULDER LT WO/W CON INDICATIONS: Mass of left shoulder TECHNIQUE: Noncontrast oblique coronal T1 spin echo and T2 fast spin echo with fat saturation, oblique sagittal T1 spin echo and T2 fast spin echo with fat saturation, axial T1 spin echo and T2 fast spin echo with fat saturation through the shoulder. Post- contrast oblique coronal, oblique sagittal, and axial T1 spin echo with fat saturation through the shoulder. COMPARISON: [facility], CR, XR SHOULDER LT MIN 2V, 10/26/2023, 12:07. FINDINGS: Image quality: Excellent. Rotator cuff: Mild distal supraspinatus and infraspinatus tendinosis. The subscapularis tendon is intact. No rotator cuff tendon rupture. Sagittal images demonstrate no significant rotator cuff muscle atrophy. No area of abnormal intramuscular enhancement is seen. Bones and bursae: No suspicious bone marrow enhancement. Mild acromioclavicular joint osteoarthritic changes are seen or joint space narrowing and subchondral sclerosis. No marrow edema. No fracture or dislocation. Type 2 acromion, without an os acromiale. Small amount of joint fluid and subacromial subdeltoid bursal fluid, no loose bodies. Capsule and soft tissues: No enhancing soft tissue mass or drainable fluid collection is identified. The glenoid labrum is grossly intact. The long head of the biceps tendon demonstrates normal location and morphology. The rotator interval appears normal, without fibrosis. The coracohumeral ligament is normal in thickness. IMPRESSION: 1. No enhancing soft tissue mass or drainable fluid collection is seen. 2. Mild acromioclavicular joint osteoarthritis. No fracture or dislocation. No suspicious intraosseous enhancement. Small joint effusion, no loose bodies. 3. Distal supraspinatus and infraspinatus tendinosis. No rotator cuff tendon rupture. No rotator cuff muscle atrophy. No area of abnormal intramuscular enhancement. 4. No evidence of focal labral tear. Dictated by: Get Berg M.D. on 09/08/2024 at 9:11 Approved by: Get Berg M.D. on 09/08/2024 at 9:49
--- NOTE | 2024-09-07 14:58 | DI.MG.S_ITS ---
MM screening mammo BI: 09/07/2024. BI-RADS: 0 CLINICAL: 48-year old female for bilateral screening mammogram. Tyrer-Cuzick lifetime risk of 30.2%. Current reported family history of breast cancer: mother and maternal aunt. The patient had a prior right breast biopsy. PRIOR EXAMS 06/15/2023, 06/18/2022, 05/23/2022, 04/26/2020, 03/28/2020, 08/13/2018, 05/28/2015. MAMMOGRAPHY TECHNIQUE: 2D and 3D (tomosynthesis) digital mammographic views obtained, with additional images as needed for full coverage. Current study was also evaluated with a Computer Aided Detection (CAD) system. DENSITY C. The breasts are heterogeneously dense, which may obscure small masses. MAMMOGRAPHY FINDINGS Right: Lower Outer Quadrant, Middle depth: Focal asymmetry needing additional imaging evaluation. Right: Benign-appearing post-surgical changes noted on the right. Left: No suspicious mass, asymmetry, microcalcification, or other abnormality seen. IMPRESSION: Right (Asymmetry): Lower Outer Quadrant, Middle depth * Incomplete - focal asymmetry needing additional imaging evaluation. Left * No evidence of malignancy. RECOMMENDATIONS Right: Lower Outer Quadrant, Middle depth * Further evaluation with diagnostic mammography and diagnostic ultrasound. Ultrasound to be performed only if needed. OVERALL ASSESSMENT CATEGORY BI-RADS-0: Incomplete - Need Additional Imaging Evaluation. ELECTRONICALLY SIGNED: Leonila White M.D. on 09/10/2024 at 01:31:20 AM PT Interpreting Station ID: [id number]
== END ==
PROVIDERS: Family Provider Family Medicine; PCP Family Medicine; Referring Provider Family Medicine; Visit Provider Family Medicine
DX: Z12.31 Encounter for screening mammogram for malignant neoplasm of breast (principal); R92.333 Mammographic heterogeneous density, bilateral breasts; Z80.3 Family history of malignant neoplasm of breast; M19.012 Primary osteoarthritis, left shoulder; M25.412 Effusion, left shoulder; R22.32 Localized swelling, mass and lump, left upper limb
CPT/HCPCS: 73223; 77063; 77067; A9579

== ENCOUNTER → 2024-09-13 11:03 | Outpatient (CLI) | payer OTHER, SELFPAY ==
[2024-09-13 11:53] LABS: Add Manual Diff / Slide Review NO; Basophils Absolute Auto 100 /uL (0-100); Basophils Percent Auto 0.9 % (0-2); Eosinophils Absolute Auto 100 /uL (0-450); Eosinophils Percent Auto 2.3 % (2-4); Hematocrit 39.4 % (36-46); Hemoglobin 13.2 g/dL (12.0-16.0); Lymphocytes Absolute Auto 1700 /uL (1100-4500); Lymphocytes Percent Auto 30.7 % (25-40); Mean Corpuscular HGB Conc 33.6 % (30-36); Mean Corpuscular Hemoglobin 30.6 PG (26-34); Mean Corpuscular Volume 91.2 fL (80-100); Monocytes Absolute Auto 300 /uL (0-900); Monocytes Percent Auto 5.1 % (3-14); Neutrophils Absolute Auto 3300 /uL (1500-7000); Platelet Count 309 X10^3/uL (150-400); Red Blood Cell Count 4.33 X10^6/uL (4.0-5.2); Red Cell Distribution Width 13.8 % (11.6-14.8); White Blood Cell Count 5.4 X10^3/uL (4.5-11.0)
[2024-09-13 12:43] LABS: Alanine Aminotransferase 10 IU/L (<35); Albumin 4.3 g/dL (3.5-5.0); Albumin Globulin Ratio 1.9 (1.0-2.8); Alkaline Phosphatase 63 U/L (38-126); Aspartate Aminotransferase 19 IU/L (14-36); BUN Creatinine Ratio 9.6 (6-22); Bilirubin Total 0.8 mg/dL (0.2-1.3); Blood Urea Nitrogen 9 mg/dL (7-17); Calcium 9.7 mg/dL (8.4-10.2); Carbon Dioxide 25 mmol/L (22-32); Chloride 108 mmol/L (98-107); Cholesterol 180 mg/dL (140-199); Estimated Glomerular Filt Rate > 60 mL/min (>60); Globulin 2.3 g/dL (1.7-4.1); Glucose 90 mg/dL (70-99); HDL Cholesterol 71 mg/dL (40-60); HEMOLYSIS < 15 (0-50); LDL Cholesterol Calculated 98 mg/dL (<100); Potassium 4.8 mmol/L (3.4-5.1); Sodium 139 mmol/L (137-145); Total Protein 6.6 g/dL (6.3-8.2); Triglycerides 57 mg/dL (35-150)
[2024-09-13 13:10] LABS: TSH w/ Reflex to FT4 2.03 uIU/mL (0.47-4.68)
[2024-09-13 13:16] LABS: Ferritin 26 ng/mL (6-137)
[2024-09-13 13:44] LABS: Folate > 20.0 ng/mL (2.76-20.0); Vitamin B12 341 pg/mL (239-931)
[2024-09-13 14:34] LABS: Vitamin D 25 Hydroxy (D3) 26.6 ng/mL (30.0-100.0)
== END ==
PROVIDERS: Family Provider Family Medicine; PCP Family Medicine; Referring Provider Family Medicine; Visit Provider Family Medicine
DX: E53.8 Deficiency of other specified B group vitamins (principal); E53.1 Pyridoxine deficiency; E55.9 Vitamin D deficiency, unspecified; R53.83 Other fatigue; Z86.39 Personal history of other endocrine, nutritional and metabolic disease
CPT/HCPCS: 36415; 80053; 80061; 82306; 82607; 82728; 82746; 84443; 85025

== ENCOUNTER → 2024-10-18 11:13 | Outpatient (CLI) | payer OTHER, SELFPAY ==
--- NOTE | 2024-10-18 11:14 | DI.US.S_ITS ---
US breast RT limited, MM diagnostic mammo unilat RT: 10/18/2024 BI-RADS: 3 CLINICAL: 49-year old female for right diagnostic mammogram and right diagnostic breast ultrasound that is a recall from screening on 09/07/2024. Tyrer-Cuzick lifetime risk of 30.2%. Current reported family history of breast cancer: mother and maternal aunt. The patient had a prior right breast biopsy. PRIOR EXAMS 09/07/2024, 06/15/2023, 06/18/2022, 05/23/2022, 04/26/2020, 03/28/2020, 08/13/2018, 05/28/2015. MAMMOGRAPHY TECHNIQUE: 2D and 3D (tomosynthesis) digital mammographic views obtained, with additional images as needed for full coverage. Current study was also evaluated with a Computer Aided Detection (CAD) system. ULTRASOUND TECHNIQUE TARGETED Right Breast Ultrasound: Real-time ultrasound exam was performed focused to area of clinical and/or imaging concern. Real-time joseph scale and color doppler imaging of the area of clinical interest was performed with image documentation. DENSITY Right: C. The breasts are heterogeneously dense, which may obscure small masses. MAMMOGRAPHY FINDINGS Right (finding-1): Lower Outer Quadrant, Middle depth, measuring 0.8cm: There is a circumscribed, oval, equal-density mass present with associated calcifications. ULTRASOUND FINDINGS Right (finding-1): Lower Outer at 7:00, 7 cm from nipple, measuring 0.7 x 0.6 x 0.5 cm: There are clustered microcysts with associated calcifications. This correlates with the mammographic finding. IMPRESSION: Right: Lower Outer at 7:00, 7 cm from nipple, measuring 0.7 x 0.6 x 0.5 cm * Probably Benign. RECOMMENDATIONS Right: Lower Outer at 7:00, 7 cm from nipple * Six month followup with diagnostic ultrasound and diagnostic mammography. COMMENTS: Findings and recommendations were conveyed to the patient during today's evaluation. In addition, this patient has an elevated lifetime risk for breast cancer of over 20%. Recommend consideration for annual screening breast MRI as an adjunct to screening mammography. OVERALL ASSESSMENT CATEGORY BI-RADS-3: Probably Benign. ELECTRONICALLY SIGNED: Kim Gomez M.D. on 10/18/2024 at 02:04:12 PM PT Interpreting Station ID: [id number]
== END ==
LOC: MAMMO 11:14
PROVIDERS: Family Provider Family Medicine; PCP Family Medicine; Referring Provider Family Medicine; Visit Provider Family Medicine
DX: R92.8 Other abnormal and inconclusive findings on diagnostic imaging of breast (principal); R92.1 Mammographic calcification found on diagnostic imaging of breast; N63.13 Unspecified lump in the right breast, lower outer quadrant; R92.331 Mammographic heterogeneous density, right breast; Z80.3 Family history of malignant neoplasm of breast
CPT/HCPCS: 76642; 77065; G0279